=== PATIENT | male | born 1950 | race Caucasian/White ===

== ENCOUNTER 2020-01-01 00:48 | Day surgery (SDC) | payer MEDICARE, BC, SELFPAY ==
[2019-12-25 10:25] VITALS: BMI 32.2
[2020-01-01 10:32] VITALS: BP 177/82; PULSE 50; RESP 16; TEMP 36.5; O2SAT 100
[2020-01-01] MEDS: LACTATED RINGERS 1,000 ML 150 ML IV CONT (10:47)
--- NOTE | 2020-01-01 10:55 | WPDANESEPPF ---
Anes - Initial Pre Proc Eval Procedure: Operation Date: 01/01/20 11:00 Proposed Procedures p Colonoscopy - Chinedu Yanez MD Date/Time: 01/01/20 10:55 Surgeon: Chinedu Yanez MD Pre Op Diagnosis: Change in bowel habits Patient Data Age: 69 Gender: M Height: 6 ft 2 in Weight: 114 kg Last Vital Signs Temp 36.5 C 01/01/20 10:32 Pulse 50 L 01/01/20 10:32 Resp 16 01/01/20 10:32 BP 177/82 H 01/01/20 10:32 Pulse Ox 100 01/01/20 10:32 Allergies Allergy/AdvReac Type Severity Reaction Status Date / Time No Known Allergies Allergy Unknown . Verified 01/01/20 10:30 Home Medications Medication Instructions Recorded Confirmed Type adalimumab 40 mg/0.8 mL 40 mg SUB-Q .every 2 weeks each 09/30/19 12/25/19 History subcutaneous syringe kit atorvastatin 40 mg tablet 40 mg PO EVERY OTHER DAY 09/30/19 12/25/19 History aspirin 325 mg tablet 325 mg PO DAILY 10/08/19 12/25/19 History blood sugar diagnostic #10 each 10/08/19 12/25/19 History blood-glucose meter #1 each 10/08/19 12/25/19 History cholecalciferol (vitamin D3) 25 1,000 unit PO DAILY 10/08/19 12/25/19 History mcg (1,000 unit) capsule folic acid 1 mg tablet 2 mg PO DAILY tablet 10/08/19 12/25/19 History lancets 30 gauge #25 each 10/08/19 12/25/19 History multivitamin,tj-epqs-xgpirlnd 1 tablet PO DAILY 10/08/19 12/25/19 History omega-3 360 os-bwq-dpr-fish oil 1 cap PO DAILY 10/08/19 12/25/19 History 1,200 mg capsule,delayed release tamsulosin 0.4 mg capsule 0.4 mg PO DAILY 10/08/19 12/25/19 History oxycodone-acetaminophen 10 mg-325 1 tablet PO Q6H PRN #120 tablet 11/05/19 12/25/19 Rx mg tablet methotrexate sodium 2.5 mg tablet 15 mg PO WEEKLY tablet 12/24/19 12/25/19 History prednisone 10 mg PO PRN 12/25/19 12/25/19 History Patient hx anesthesia problems: none Family hx anesthesia problems: none PMFSH Past Medical History Medical History Acute bronchitis due to other specified organisms Acute CVA (cerebrovascular accident) Acute non-recurrent maxillary sinusitis AK (actinic keratosis) Ataxia Bilateral foot pain BPH without urinary obstruction Chronic depression Claudication, intermittent Fecal incontinence Hemiparesis affecting left side as late effect of cerebrovascular accident History of squamous cell carcinoma Hypogonadism male Intermittent claudication of both lower extremities due to atherosclerosis Mixed hyperlipidemia Multiple polyps of sigmoid colon Pain in left foot Prurigo nodularis Rheumatoid arthritis involving ankle with positive rheumatoid factor Rheumatoid arthritis involving multiple sites with positive rheumatoid factor Rheumatoid arthritis of unspecified site with involvement of other organs and systems Skin cancer screening Skin neoplasm Squamous cell carcinoma of neck Type 2 diabetes mellitus with hyperglycemia, without long-term current use of insulin Family History Family History Mother Family history of osteoporosis Family history of cardiac disorder, Onset Age: 89 Sibling Patient's brother is , Onset Age: 3 Family history of malignant neoplasm of kidney, Onset Age: 3 Father Malignant neoplasm of prostate, Onset Age: 92 Social History Social History Smoking status: Never smoker Smoking end date: 11/26/96 Alcohol intake: never Gender identity (if verbalized by the patient): Male Anes - Eval Final PreProcedure Day of Procedure 01/01/20 10:55 Patient weight: obese Heart: regular rate and rhythm Lungs: clear to auscultation Airway: Mallampati scale class III Neurological: alert and oriented Last oral intake: >/= 8 hours ASA classification: III Emergent: no Anesthetic plan: proceed Anesthesia type and monitoring: general GIVS and standard monitoring Informed Conse
--- NOTE | 2020-01-01 11:06 | PM.HPGS ---
History of Present Illness History of Present Illness Consent: Risks, benefits, and alternatives have been discussed and questions answered. Patient agrees to proceed with procedure. Chief complaint: Change in bowel habits Narrative: Randolph Ellison is a 69 year old W male referred for colonoscopy secondary to history of colonic polyps. Last colonoscopy was performed 2018 and least 10 polyps were removed. Patient also had occasional episode of fecal incontinence. [facility] Past Medical History Medical History Acute bronchitis due to other specified organisms Acute CVA (cerebrovascular accident) Acute non-recurrent maxillary sinusitis AK (actinic keratosis) Ataxia Bilateral foot pain BPH without urinary obstruction Chronic depression Claudication, intermittent Fecal incontinence Hemiparesis affecting left side as late effect of cerebrovascular accident History of squamous cell carcinoma Hypogonadism male Intermittent claudication of both lower extremities due to atherosclerosis Mixed hyperlipidemia Multiple polyps of sigmoid colon Pain in left foot Prurigo nodularis Rheumatoid arthritis involving ankle with positive rheumatoid factor Rheumatoid arthritis involving multiple sites with positive rheumatoid factor Rheumatoid arthritis of unspecified site with involvement of other organs and systems Skin cancer screening Skin neoplasm Squamous cell carcinoma of neck Type 2 diabetes mellitus with hyperglycemia, without long-term current use of insulin Family History Family History Mother Family history of osteoporosis Family history of cardiac disorder, Onset Age: 89 Sibling Patient's brother is , Onset Age: 3 Family history of malignant neoplasm of kidney, Onset Age: 3 Father Malignant neoplasm of prostate, Onset Age: 92 Social History Social History Smoking status: Never smoker Smoking end date: 11/26/96 Alcohol intake: never Gender identity (if verbalized by the patient): Male Meds Home Medications and Allergies Home Medications Medication Instructions Recorded Confirmed Type adalimumab 40 mg/0.8 mL 40 mg SUB-Q .every 2 weeks each 09/30/19 12/25/19 History subcutaneous syringe kit atorvastatin 40 mg tablet 40 mg PO EVERY OTHER DAY 09/30/19 12/25/19 History aspirin 325 mg tablet 325 mg PO DAILY 10/08/19 12/25/19 History blood sugar diagnostic #10 each 10/08/19 12/25/19 History blood-glucose meter #1 each 10/08/19 12/25/19 History cholecalciferol (vitamin D3) 25 1,000 unit PO DAILY 10/08/19 12/25/19 History mcg (1,000 unit) capsule folic acid 1 mg tablet 2 mg PO DAILY tablet 10/08/19 12/25/19 History lancets 30 gauge #25 each 10/08/19 12/25/19 History multivitamin,hs-rfnv-nuvrynnz 1 tablet PO DAILY 10/08/19 12/25/19 History omega-3 360 pn-wlo-wzj-fish oil 1 cap PO DAILY 10/08/19 12/25/19 History 1,200 mg capsule,delayed release tamsulosin 0.4 mg capsule 0.4 mg PO DAILY 10/08/19 12/25/19 History oxycodone-acetaminophen 10 mg-325 1 tablet PO Q6H PRN #120 tablet 11/05/19 12/25/19 Rx mg tablet methotrexate sodium 2.5 mg tablet 15 mg PO WEEKLY tablet 12/24/19 12/25/19 History prednisone 10 mg PO PRN 12/25/19 12/25/19 History Allergies Allergy/AdvReac Type Severity Reaction Status Date / Time No Known Allergies Allergy Unknown . Verified 01/01/20 10:30 Vital Signs Vital Signs - 24 hr 01/01/20 10:32 Temperature 36.5 C Pulse Rate 50 L Respiratory Rate 16 Blood Pressure 177/82 H Pulse Oximetry 100 Exam Const: Orientation/consciousness: patient oriented x3 Resp: Auscultation: clear to auscultation bilaterally Cardio: Rate: regular rate Rhythm: regular rhythm Heart sounds: no murmurs GI: GI Palp: Yes Soft to palpation, No Tenderness to palpation present (GI), Yes No hepatospl
[2020-01-01 11:57] VITALS: BP 127/71; PULSE 55; RESP 12; O2SAT 97
[2020-01-01 12:07] VITALS: BP 120/72; PULSE 55; RESP 12; O2SAT 97
[2020-01-01 12:17] VITALS: BP 158/98; PULSE 58; RESP 12; O2SAT 100
== END 2020-01-01 12:35 | disposition home or self-care (01) ==
PROVIDERS: PCP Family Medicine; Visit Provider Internal Medicine Gastroenterology
PROC: 0DJD8ZZ Inspection of Lower Intestinal Tract, Via Natural or Artificial Opening Endoscopic (ICD-10-PCS; CPT 45378; principal; 2020-01-01 11:00)
DX: R19.4 Change in bowel habit (principal); K63.5 Polyp of colon; K57.30 Diverticulosis of large intestine without perforation or abscess without bleeding; R15.9 Full incontinence of feces; E11.9 Type 2 diabetes mellitus without complications; E78.2 Mixed hyperlipidemia; N40.0 Benign prostatic hyperplasia without lower urinary tract symptoms; F32.9 Major depressive disorder, single episode, unspecified; I69.354 Hemiplegia and hemiparesis following cerebral infarction affecting left non-dominant side; I70.213 Atherosclerosis of native arteries of extremities with intermittent claudication, bilateral legs; M10.9 Gout, unspecified; Z79.82 Long term (current) use of aspirin; E66.9 Obesity, unspecified; Z68.32 Body mass index [BMI] 32.0-32.9, adult
CPT/HCPCS: 45385; 88305; J2704; J7120

== ENCOUNTER 2021-02-23 08:11 | Outpatient (CLI) | payer MEDICARE, BC, SELFPAY ==
--- NOTE | ~2021-02-23 | XR_ITS ---
MODIFIED ESOPHAGRAM HISTORY: Dysphagia. TECHNIQUE: Modified barium esophagram was performed on 02/23/2021. I administered fluoroscopy and perf ormed the exam with speech pathologist. Patient was seated for lateral fluoroscopic imaging for elkin stion of thin liquids, pudding, solids and quantified amounts, followed by thin liquids in uncontroll ed amounts. This was recorded on tape. A single fluoroscopic spot image was also recorded. The DAP fo r this procedure was 1.5 Gycm2. The amount of fluoroscopy time used during this procedure was 2.2 min utes. FINDINGS: Oral stage: Adequate function. Pharyngeal stage: Adequate function. Transient laryngeal penetration without aspiration was noted dur ing uncontrolled swallow of thin liquids via cup and straw. Cervical/esophageal stage: Adequate function. Mildly prominent anterior endplate osteophytes in the l ower cervical spine. IMPRESSION: Patient tolerated regular consistency oral feedings in the upright position. Please karyn elate with speech pathologist findings and specific feeding recommendations. Reviewed, dictated and finalized at location A. IMPRESSION: Patient tolerated regular consistency oral feedings in the upright position. Please correlate with speech pathologist findings and specific feedi ng recommendations.
--- NOTE | 2021-02-23 13:02 | STOPEVAL ---
MODIFIED BARIUM SWALLOW EVALUATION: Thank you for referring Randolph Ellison to [facility].? Attending Provider: Pedro Pool MD FAX #: [phone] Outpatient Past Medical History Past Medical History Source of Past Medical History Patient Neurological History Hx Cerebrovascular Accident (CVA) Yes: 2012 Hx Other Neurological Disorders Yes: Neuropathy Cardiovascular History Hx Hypertension Yes: Resolved With 100 lb weight loss Respiratory History Hx Sleep Apnea Yes: CPAP Gastrointestinal History Hx Gastrointestinal Disorders No Significant History Genitourinary History Hx Prostatectomy Yes Musculoskeletal History Hx Joint Replacement Yes: Bilateral Knee Replacement 2011 Hx Rheumatoid Arthritis Yes Hematological History Hx Hematological Disorders No Significant History Endocrine History Hx Diabetes Yes: Resolved since weight loss HEENT History Hx HEENT Disorders No Significant History Integumentary History Hx Skin Disorders No Significant History Reproductive History Hx Reproductive Disorders No Significant History Psychosocial History Hx Depression Yes Pain History Has Past Pain Affected Your Daily Life Yes History of Long-Term Prescription Pain Yes: Percocet Medication Use (Opiates) Anesthesia History Hx Anesthesia Reactions No Significant History Other History Hx Implanted Device Yes: Bilateral Knee Replacments Prior Level of Function Prior Swallow Level Prior Intake Method Oral Prior Diet Regular (Level 7 Diet) Prior Liquid Consistency Thin (Level 0 Diet) Pain Assessment Timing of Pain Assessment Timing of Pain Assessment Assessment Self Report Self Report Pain Level 0 Pain Score Pain Score 0: Self Report Modified Barium Swallow Evaluation Recent Swallowing History Reports Dysphagia Yes: food doesn't go down, especially meat Onset of Dysphagia month or so ago History of Dysphagia No History of Related Medical Diagnosis CVA Other Factors Impacting Dysphagia None History of Pneumonia No Reported Difficult Consistencies Solids Intake Method Prior to Swallow Oral Evaluation Diet Prior to Swallow Evaluation Regular, Level 7 Liquid Consistency Prior to Swallow Thin (0) Evaluation Consistency Solid Consistency Method of Presentation Straw Oral Preparatory Symptoms Within Functional Limits Oral Phase Symptoms Within Functional Limits Pharyngeal Phase Symptoms Bony Protuberance Severity of Vallecular Residue None - 0% No Residue Severity of Pyriform Sinus Residue None - 0% No Residue 8 Point L
== END 2021-02-23 08:12 | disposition home or self-care (01) ==
PROVIDERS: PCP Family Medicine; Visit Provider Family Medicine
DX: R13.10 Dysphagia, unspecified (principal)
CPT/HCPCS: 92611

== ENCOUNTER 2021-03-29 17:48 | Observation (INO) | payer MEDICARE, BC, SELFPAY ==
--- NOTE | ~2021-03-29 | CT_ITS ---
EXAMINATION: CTA chest PE abdomen pel DATE: 03/29/2021 19:30 INDICATION: Chest pain. Low abdominal pain. TECHNIQUE: Computed tomography angiography (CTA) of the chest was performed with 100 mL Omnipaque-350 intravenous contrast timed to evaluate the pulmonary arteries. Coronal maximum intensity projection 3D-reconstructions were created by the technologist. Computed tomography (CT) of the abdomen and pelv is was performed with intravenous contrast. Automated exposure control and iterative reconstruction t echnique were employed. The dose-length product was 2215.60 mGy-cm. COMPARISON: Chest CT 08/23/2018 FINDINGS: CTA chest: There is mild scarring at the lung apices. There are scattered groundglass opacities and s mall airspace opacities in all lobes. Calcified right lung nodules and calcified right hilar lymph no shayy are consistent with old granulomatous disease. There is a 10 mm cavitary nodule in left lower lob e. There is diffuse septal thickening in the lungs. No pleural effusion. There is mild mediastinal an d bilateral hilar lymphadenopathy, likely reactive. There is no pulmonary embolus. There is an old he aled left rib fracture. CT abdomen and pelvis: There are multiple low-attenuation masses in the liver measuring up to 11.3 x 8.7 cm in right hepatic lobe. There are cysts in the liver measuring up to 2.6 cm. The gallbladder is normal in size. Gallbladder wall thickening is noted. The spleen and pancreas are normal. There is c ortical thinning of the kidneys. The prostate is mildly enlarged. There is diverticulosis of the colo n without evidence of diverticulitis. The appendix is normal. There are no dilated loops of bowel. Th ere is wall thickening of the cardia of the stomach. There is gastrohepatic, periportal, aortocaval, left periaortic lymphadenopathy. 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 T here is no free intraperitoneal fluid. There is moderate lumbar spondylosis. IMPRESSION: 1. Wall thickening of the cardia of the stomach suspicious for primary adenocarcinoma. 2. Abdominal lymphadenopathy, liver masses, and cavitary lung nodule, consistent with metastatic dise ase. 3. Diffuse lung disease, likely pneumonia and/or metastatic disease with lymphangitic spread superimp osed on chronic interstitial lung disease. 4. Gallbladder wall thickening, which may be seen with interstitial edema, chronic liver disease, or chronic cholecystitis. 5. No pulmonary embolus. Reviewed, dictated and finalized at location A. IMPRESSION: 1. Wall thickening of the cardia of the stomach suspicious for primary adenocar cinoma. 2. Abdominal lymphadenopathy, liver masses, and cavitary lung nodule, consisten t with metastatic disease. 3. Diffuse lung disease, likely pneumonia and/or metastatic disease with lympha ngitic spread superimposed on chronic interstitial lung disease. 4. 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 5. No pulmonary embolus.
--- NOTE | ~2021-03-29 | XR_ITS ---
EXAMINATION: XR chest 1V portable DATE: 03/29/2021 18:24 INDICATION: Cough and shortness of breath. TECHNIQUE: A single frontal view of the chest was obtained on 2 radiographs. COMPARISON: Chest 2 views 07/07/2019, chest CT 08/23/2018 FINDINGS: The chest demonstrates clear lungs without pneumonia, pleural effusion, or pneumothorax. Th e heart size is normal. There is an old healed left rib fracture. IMPRESSION: 1. No acute cardiopulmonary disease. Reviewed, dictated and finalized at location A.
[2021-03-29 17:55] VITALS: BP 132/93; PULSE 108; RESP 20; TEMP 36.8; O2SAT 98
--- NOTE | 2021-03-29 18:09 | ECG_ITS ---
Measurements Intervals [place] Rate: 93 P: [place]: 0 QRS: -49 QRSD: 117 T: 81 QT: 362 QTc: 450 Interpretive Statements SINUS RHYTHM WITH FIRST DEGREE AV BLOCK ATRIAL PREMATURE COMPLEXES LEFT ANTERIOR FASCICULAR BLOCK LEFT VENTRICULAR HYPERTROPHY WITH ST-T CHANGE CONSIDER INFERIOR INFARCT, AGE INDETERMINATE ABNORMAL ECG Electronically Signed On 03-29-2021 18:46:47 CDT by Abbe Lyle D.O.
--- NOTE | 2021-03-29 18:17 | ED.WEAKNESS ---
HPI - Weakness General Chief complaint: Weakness Stated complaint: sob, cough Time Seen by Provider: 03/29/21 17:53 Source: patient and RN notes reviewed Mode of arrival: ambulatory Limitations: no limitations History of Present Illness HPI Narrative: This is a 71 year old male with history of DM, RA, ROBERTA with CPAP who presents from home for evaluation of generalized weakness, right chest pain, and cough. He states he has not felt well for 3 weeks. He has been having pain to right upper chest and shoulder for 3 weeks. This pain is worse with inspiration. He also reports nonproductive cough for 3 weeks. He also has intermittent epigastric abdominal pain with intermittent nausea and vomiting. He is unsure if he has had a fever. He thinks his symptoms are due to using a dirty CPAP machine. He has not been on antibiotics or been evaluation for his symptoms. HE denies sick contacts. He is vaccinated for COVID. He also has sob. MD Complaint: generalized weakness Related Data Home Medications Medication Instructions Recorded Confirmed adalimumab 40 mg/0.8 mL 40 mg SUB-Q .every 2 weeks each 09/30/19 02/16/21 subcutaneous syringe kit atorvastatin 40 mg tablet 40 mg PO EVERY OTHER DAY 09/30/19 02/16/21 aspirin 325 mg tablet 325 mg PO DAILY 10/08/19 02/16/21 blood sugar diagnostic #10 each 10/08/19 02/16/21 blood-glucose meter #1 each 10/08/19 02/16/21 cholecalciferol (vitamin D3) 25 1,000 unit PO DAILY 10/08/19 02/16/21 mcg (1,000 unit) capsule folic acid 1 mg tablet 2 mg PO DAILY tablet 10/08/19 02/16/21 lancets 30 gauge #25 each 10/08/19 02/16/21 multivitamin,tb-cric-mtxkwwcw 1 tablet PO DAILY 10/08/19 02/16/21 omega-3 360 po-fly-qdw-fish oil 1 cap PO DAILY 10/08/19 02/16/21 1,200 mg capsule,delayed release methotrexate sodium 2.5 mg tablet 15 mg PO WEEKLY tablet 12/24/19 02/16/21 Allergies Allergy/AdvReac Type Severity Reaction Status Date / Time No Known Allergies Allergy Unknown . Verified 03/29/21 18:02 Review of Systems Review of Systems: All systems reviewed & are unremarkable except as noted in HPI and below Constitutional: Constitutional: Denies chills, Denies fever(s) and Reports weakness ENT: Denies sore throat Cardiovascular: Cardiovascular: Reports chest pain and Denies radiating jaw, neck or arm pain Respiratory: Respiratory: Reports cough and Reports dyspnea Gastrointestinal: Gastrointestinal: Reports abdominal pain, Reports nausea and Reports vomiting Genitourinary: Genitourinary: Denies hematuria Endocrine: Endocrine: Reports fatigue [facility] Past Medical History Medical History (Updated 03/29/21 @ 20:37 by Ana Zavala MD) Acute bronchitis due to other specified organisms Acute CVA (cerebrovascular accident) Acute non-recurrent maxillary sinusitis Acute parotitis AK (actinic keratosis) Ataxia Bilateral foot pain BMI 33.0-33.9,adult BPH without urinary obstruction Chronic depression Claudication, intermittent Conjunctivitis Difficulty swallowing Fecal incontinence Hemiparesis affecting left side as late effect of cerebrovascular accident History of squamous cell carcinoma Hypogonadism male Intermittent claudication of both lower extremities due to atherosclerosis Mixed hyperlipidemia Multiple polyps of sigmoid colon Pain in left foot Prurigo nodularis Rheumatoid arthritis involving ankle with positive rheumatoid factor Rheumatoid arthritis involving multiple sites with positive rheumatoid factor Rheumatoid arthritis of unspecified site with involvement of other organs and systems Skin cancer screening Skin neoplasm Squamous cell carcinoma of neck Type 2 diabetes mellitus with hyperglycemia, without long-term current use of insulin Family History Family History Mother Family history of osteoporosis Family history of cardiac disorder, Onset Age: 89 Sibling Patient's brother is , On
[2021-03-29 18:33] LABS: Basophils Percent Auto 0.4 % (0.2-1.2); Eosinophils Absolute Auto 0.2 K/mm3 (0-0.3); Eosinophils Percent Auto 2.3 % (0-4.4); Hematocrit 42.5 % (42.0-52.0); Hemoglobin 14.7 g/dL (14.0-18.0); Immature Granulocyte Absolute 0.15 K/mm3 (0.00-0.031); Immature Granulocyte Percent A 1.7 % (0-0.5); Immature Platelet Fraction Pct 6.6 % (0.9-11.2); Lymphocytes Absolute Auto 1.21 K/mm3 (0.9-3.2); Lymphocytes Percent Auto 13.5 % (18.3-44.2); Mean Corpuscular HGB Conc 34.6 g/dl (32-36); Mean Corpuscular Hemoglobin 33.3 pg (26-34); Mean Corpuscular Volume 96.4 fl (80-100); Mean Platelet Volume 10.7 fl (7.4-10.4); Monocytes Absolute Auto 1.2 K/mm3 (0.1-0.6); Monocytes Percent Auto 12.9 % (2.6-8.5); Neutrophils Absolute Auto 6.2 K/mm3 (1.3-6.7); Neutrophils Percent Auto 69.2 % (45.5-73.1); Platelet Count Result 126 k/mm3 (150-375); Red Blood Count 4.41 M/mm3 (4.6-6.20); Red Cell Distribution Width 13.3 % (11.5-14.5)
[2021-03-29 18:41] LABS: Lactic Acid Reflex 1.2 mmol/L (0.7-2.1)
[2021-03-29 18:47] LABS: INR 1.2; Partial Thromboplastin Time 30.3 SECONDS (22.3-36.8); Prothrombin Time 15.8 Seconds (11.1-14.7)
[2021-03-29 18:52] LABS: Alanine Aminotransferase 33 U/L (4-50); Albumin Level 4.2 g/dL (3.5-5.1); Alkaline Phosphatase 75 U/L (38-126); Anion Gap 7 mmol/L (8-16); Aspartate Amino Transferase 49 U/L (17-59); Bilirubin,Total 0.9 mg/dL (0.2-1.3); Blood Urea Nitrogen 19 mg/dL (9-20); CRP 2.1 mg/dL (<1.0); Calcium 11.1 mg/dL (8.4-10.2); Carbon Dioxide 26 mmol/L (22-30); Chloride 102 mmol/L (98-107); Estimated Glomerular Filt Rate > 60; Glucose 151 mg/dL (75-110); Lipase 612 U/L (23-300); Magnesium 2.1 mg/dL (1.6-2.3); Potassium 3.9 mmol/L (3.4-5.0); Sodium 135 mmol/L (137-145)
[2021-03-29] MEDS: SODIUM CHLORIDE 0.9% IV 1,000 ML 999 ML IV CONT ×2 (19:00→20:18)
[2021-03-29 19:01] LABS: NT Pro B Type Natriuretic Pept 63 pg/mL (5-100); Troponin I < 0.012 ng/mL (0.000-0.034)
[2021-03-29 19:12] LABS: D Dimer > 20.00 ug/mL (<0.48)
[2021-03-29 19:38] VITALS: BP 142/98; PULSE 92; RESP 20; O2SAT 97
[2021-03-29 20:31] LABS: Add Urine Microscopic? YES; Appearance Urine Clear (Clear); Bilirubin Urine Negative (Negative); Blood Urine Negative (Negative); Color Urine Yellow (Yellow); Glucose Urine UA Negative (Negative); Ketones Urine Negative (Negative); Leukocyte Esterase Ur Negative LEU/UL (Negative); Mucus Urine Rare /lpf; Nitrate Urine Negative (Negative); Protein Urine 1+ mg/dL (Negative); RBC Urine 0-2 /hpf (0-2); Urobilinogen Urine Negative mg/dL (<2.0); WBC Urine 0-3 /hpf
[2021-03-29 20:34] LABS: Specific Grav Ur 1.041 (1.001-1.035)
[2021-03-29 21:26] VITALS: BP 149/103; PULSE 78; PULSE 91; RESP 20; TEMP 36; O2SAT 98; BMI 32.3
--- NOTE | 2021-03-29 21:39 | ADMGEN ---
This patient, Randolph Ellison, was admitted to Medical Room 249-01. Patient/family oriented to hospital policies and general routines including ID bracelet, bed and alarms, visiting hours, pain management, procedures, bathroom and other care routines, personal items, smoking policy, room service/diet, and visiting hours. Information on how to activate the Rapid Response Team has been discussed. Patient/Family are encouraged to report perceived risks to care and to ask questions if they do not understand what they are told or what they should do.
--- NOTE | 2021-03-29 21:43 | PM.IMHP ---
H&P: HPI History of Present Illness Date/Time: 03/29/21 21:43 This is a 71 year old male with history of DM, RA, ROBERTA with CPAP who presents from home for evaluation of generalized weakness, intermittent chest pain, cough and shortness of breath which has been ongoing since past 3 weeks. he also reprots some difficulty swallow couple of weeks ago for which he had a swallow test done which was negative. he rpeorts he particulalry gets swlallowing difficulty with eating hamburgers. The chest pain is related to his breathing and has some cough which is mostly brought in by taking deep breaths. he denies having any fever, chills or night sweats. He reports no weight loss. Chief Complaint: weakness, chest pain, cough, sob Review of Systems Constitutional: Constitutional: Denies chills, Reports fatigue, Denies night sweats and Reports weakness Eyes: Eyes: Denies blurry vision and Denies photophobia ENT: Denies epistaxis and Denies nasal congestion Cardiovascular: Cardiovascular: Reports chest pain, Denies diaphoresis, Denies leg edema and Denies lightheadedness Respiratory: Respiratory: Denies chest congestion, Reports cough, Denies hemoptysis and Reports dyspnea on exertion Gastrointestinal: Gastrointestinal: Denies abdominal pain, Denies melena, Denies bloating, Reports constipation, Denies nausea and Denies vomiting Genitourinary: Genitourinary: Denies urinary frequency, Reports urinary incontinence and Reports urinary urgency Musculoskeletal: Musculoskeletal: Reports back pain, Denies arthralgias, Denies joint swelling and Denies neck pain Integumentary/Breasts: Skin/Breast: Denies dry skin and Denies pruritus Neurologic: Denies Abnormal speech present, Denies abnormal gait and Denies confusion Psychiatric: Psychiatric: Denies anxiety and Denies confusion [facility] Past Medical History Medical History (Updated 03/29/21 @ 20:37 by Ana Zavala MD) Acute bronchitis due to other specified organisms Acute CVA (cerebrovascular accident) Acute non-recurrent maxillary sinusitis Acute parotitis AK (actinic keratosis) Ataxia Bilateral foot pain BMI 33.0-33.9,adult BPH without urinary obstruction Chronic depression Claudication, intermittent Conjunctivitis Difficulty swallowing Fecal incontinence Hemiparesis affecting left side as late effect of cerebrovascular accident History of squamous cell carcinoma Hypogonadism male Intermittent claudication of both lower extremities due to atherosclerosis Mixed hyperlipidemia Multiple polyps of sigmoid colon Pain in left foot Prurigo nodularis Rheumatoid arthritis involving ankle with positive rheumatoid factor Rheumatoid arthritis involving multiple sites with positive rheumatoid factor Rheumatoid arthritis of unspecified site with involvement of other organs and systems Skin cancer screening Skin neoplasm Squamous cell carcinoma of neck Type 2 diabetes mellitus with hyperglycemia, without long-term current use of insulin Family History Family History Mother Family history of osteoporosis Family history of cardiac disorder, Onset Age: 89 Sibling Patient's brother is , Onset Age: 3 Family history of malignant neoplasm of kidney, Onset Age: 3 Father Malignant neoplasm of prostate, Onset Age: 92 Social History Social History Smoking status: Never smoker Smoking end date: 11/26/96 Alcohol intake: never Substance use: never Gender identity (if verbalized by the patient): Male Spiritual care concerns: No Meds Home Medications and Allergies Home Medications Medication Instructions Recorded Confirmed Type adalimumab 40 mg/0.8 mL 40 mg SUB-Q .every 2 weeks each 09/30/19 02/16/21 History subcutaneous syringe kit atorvastatin 40 mg tablet 40 mg PO EVERY OTHER DAY 09/30/19 02/16/21 History cholecalci
[2021-03-29] MEDS: SODIUM CHLORIDE 0.9% IV 1,000 ML 60 ML IV CONT (22:15)
[2021-03-29 23:01] VITALS: PULSE 63; RESP 14; O2SAT 95
[2021-03-29] MEDS: LORazepam (*CRX) 0.5 MG TABLET PO (23:01)
[2021-03-29] MEDS: FAMOTIDINE 20 MG/2 ML VIAL IV PUSH (23:01)
[2021-03-30] VITALS (11 sets, daily range): BP systolic 139–166; BP diastolic 76–94; PULSE 63–87; RESP 16–20; TEMP 36.2–37; O2SAT 93–98
[2021-03-30] MEDS: MORPHINE SULFATE (*CRX) 2 MG/ML INJ IV PUSH (01:51)
[2021-03-30 05:19] LABS: Basophils Absolute Auto 0.1 K/mm3 (0.0-0.1); Basophils Percent Auto 0.6 % (0.2-1.2); Eosinophils Absolute Auto 0.2 K/mm3 (0-0.3); Eosinophils Percent Auto 2.5 % (0-4.4); Hematocrit 36.5 % (42.0-52.0); Hemoglobin 12.8 g/dL (14.0-18.0); Immature Granulocyte Absolute 0.16 K/mm3 (0.00-0.031); Immature Granulocyte Percent A 1.7 % (0-0.5); Lymphocytes Absolute Auto 1.32 K/mm3 (0.9-3.2); Lymphocytes Percent Auto 14.1 % (18.3-44.2); Mean Corpuscular HGB Conc 35.1 g/dl (32-36); Mean Corpuscular Hemoglobin 33.1 pg (26-34); Mean Corpuscular Volume 94.3 fl (80-100); Mean Platelet Volume 10.8 fl (7.4-10.4); Monocytes Absolute Auto 1.2 K/mm3 (0.1-0.6); Monocytes Percent Auto 12.6 % (2.6-8.5); Neutrophils Absolute Auto 6.4 K/mm3 (1.3-6.7); Neutrophils Percent Auto 68.5 % (45.5-73.1); Platelet Count Result 101 k/mm3 (150-375); Red Blood Count 3.87 M/mm3 (4.6-6.20); Red Cell Distribution Width 13.2 % (11.5-14.5); White Blood Count 9.4 K/mm3 (4.5-10.0)
[2021-03-30 05:37] LABS: Alanine Aminotransferase 28 U/L (4-50); Albumin Level 3.5 g/dL (3.5-5.1); Alkaline Phosphatase 60 U/L (38-126); Anion Gap 2 mmol/L (8-16); Aspartate Amino Transferase 48 U/L (17-59); Blood Urea Nitrogen 17 mg/dL (9-20); Calcium 10.1 mg/dL (8.4-10.2); Carbon Dioxide 27 mmol/L (22-30); Chloride 105 mmol/L (98-107); Estimated CRCL calculation 102 ml/min; Estimated Glomerular Filt Rate > 60; Glucose 130 mg/dL (75-110); Lipase 141 U/L (23-300); Potassium 4.1 mmol/L (3.4-5.0); Sodium 134 mmol/L (137-145)
[2021-03-30 07:45] LABS: Glucose Point of Care 141 (65-105)
--- NOTE | 2021-03-30 07:48 | PM.IMPN ---
Progress Note: A&P Assessment and Plan (1) Gastric mass: Code(s): K31.89 - Other diseases of stomach and duodenum Status: Acute Assessment and Plan: will proceed with egd, most likely malignancy with evidence of mets prognosis is guarded after egd findings, will consult oncology for further management Oncologist: patient need palliative chemotherapy. He will also need PET scan as an outpatient. Oncologist will see him in the office and will order the PET scan and further discussion about chemotherapy treatment will be done after the final pathology report is available. Patient will also need MediPort placement that can be done as an outpatient. (2) Metastatic disease: Code(s): C79.9 - Secondary malignant neoplasm of unspecified site Status: Acute Assessment and Plan: on immunosuppressive therapy for at least 25 years duration currently on Humira and methotrexate. presented with back pain between the shoulder blade started about 4 weeks ago along with shortness of breath and difficulty swallowing for couple of weeks duration; having dysphagia for liquids and as well as solid food. lost almost 20 lb weight in last 3 months duration. CTA chest showed no evidence of pulmonary embolism but there was thickening of the cardia of the stomach suspicious for primary adenocarcinoma along with abdominal lymphadenopathy liver masses and lung nodule consistent with metastatic disease. CTA showed lymph node, liver and lung involvement (lesions/mets). EGD completed today. showed malignant appearance stenosis at the GE junction. Biopsies were taken and pathology is pending. Appreciate Oncologist Consultation and GI consultation. (3) Hypercalcemia: Code(s): E83.52 - Hypercalcemia Status: Acute Assessment and Plan: Hypercalcemia with a level of 11 Yesterday today Calcium level is 10.1 and normal. 2019 level was normal as well as January of 2020 level was normal. Possibly was due to dehydration may follow-up with PCP and review future labs (4) BMI 33.0-33.9,adult: Code(s): Z68.33 - Body mass index [BMI] 33.0-33.9, adult Status: Acute Assessment and Plan: morbid obesity recent weight loss 20 lbs. with difficulty swallowing and new diagnosis of metastasis patient will likely continue to lose weight (5) Difficulty swallowing: Qualifiers: Dysphagia type: unspecified Qualified Code(s): R13.10 - Dysphagia, unspecified Code(s): R13.10 - Dysphagia, unspecified Status: Acute Assessment and Plan: probably from mass in cardia, advised patient to take a sip of liquid or water prior to a bite of food and follow the bite of food with a sip of liquid or water. He is to chew and macerated his food into very small pieces before swallowing EGD found 3 masses in the stomach and biopsies awaiting biopsy results and oncologist recommendations and GI recommendations (6) Type 2 diabetes mellitus with hyperglycemia, without long-term current use of insulin: Code(s): E11.65 - Type 2 diabetes mellitus with hyperglycemia Status: Acute Assessment and Plan: glucose level were currently controlled today 151 and 130 that may have been due to his NPO status for his EGD prep will need to further monitor his glucose levels after restarting his meals today (7) Mixed hyperlipidemia: Code(s): E78.2 - Mixed hyperlipidemia Status: Acute Assessment and Plan: continue his home medications no concerns at this time no chest pain or shortness of breath vital signs are stable (8) Chronic depression: Code(s): F32.9 - Major depressive disorder, single episode, unspecified Status: Acute Assessment and Plan: appeared euthymic and controlled at this time patient is able to ask questions and participate in conversations, planning ahead, dealing with the current likely cancer diagnosis has family ferro
[2021-03-30] MEDS: FAMOTIDINE 20 MG/2 ML VIAL IV PUSH (08:44)
--- NOTE | 2021-03-30 09:55 | PC.NURSE ---
To GI Lab per KAMLESH steve intact. Report given to VERITO Almendarez.
--- NOTE | 2021-03-30 10:01 | WPDANESEPPF ---
Anes - Initial Pre Proc Eval Procedure: Operation Date: 03/30/21 14:45 Proposed Procedures p Esophagogastroduodenoscopy - Cipriano Hodge MD Date/Time: 03/30/21 10:01 Surgeon: Liliana Valentine NP Pre Op Diagnosis: stomach mass, hypercalcemia, metastatic disease Patient Data Age: 71 Gender: M Height: 6 ft 2 in Weight: 114.2 kg Last Vital Signs Temp 36.2 C L 03/30/21 05:10 Pulse 80 03/30/21 05:10 Resp 20 03/30/21 05:10 BP 139/94 H 03/30/21 05:10 Pulse Ox 93 03/30/21 08:57 Allergies Allergy/AdvReac Type Severity Reaction Status Date / Time No Known Allergies Allergy Unknown . Verified 03/30/21 10:01 Home Medications Medication Instructions Recorded Confirmed Type adalimumab 40 mg/0.8 mL 40 mg SUB-Q WEEKLY each 09/30/19 03/29/21 History subcutaneous syringe kit atorvastatin 40 mg tablet 40 mg PO EVERY OTHER DAY 09/30/19 03/29/21 History cholecalciferol (vitamin D3) 25 1,000 unit PO DAILY 10/08/19 03/29/21 History mcg (1,000 unit) capsule folic acid 1 mg tablet 2 mg PO DAILY tablet 10/08/19 03/29/21 History multivitamin,dq-xsmv-lgoxdynv 1 tablet PO DAILY 10/08/19 03/29/21 History omega-3 360 zg-lyg-rwo-fish oil 1 cap PO DAILY 10/08/19 03/29/21 History 1,200 mg capsule,delayed release oxycodone-acetaminophen 10 mg-325 1 tablet PO Q6H PRN #120 tablet 11/05/19 03/29/21 Rx mg tablet methotrexate sodium 2.5 mg tablet 15 mg PO WEEKLY tablet 12/24/19 03/29/21 History duloxetine 60 mg capsule,delayed 60 mg PO DAILY #90 cap 12/13/20 03/29/21 Rx release tamsulosin 0.4 mg capsule 0.4 mg PO . b.i.d. #180 cap 02/16/21 03/29/21 Rx Laboratory Tests 03/29/21 03/29/21 03/29/21 18:26 18:26 18:26 WBC 9.0 K/mm3 K/mm3 (4.5-10.0) RBC 4.41 M/mm3 L M/mm3 (4.6-6.20) Hgb 14.7 g/dL g/dL (14.0-18.0) Hct 42.5 % % (42.0-52.0) MCV 96.4 fl fl (80-100) MCH 33.3 pg pg (26-34) MCHC 34.6 g/dl g/dl (32-36) RDW 13.3 % % (11.5-14.5) Plt Count 126 k/mm3 L k/mm3 (150-375) MPV 10.7 fl H fl (7.4-10.4) Immature Gran % (Auto) 1.7 % H % (0-0.5) Neut % (Auto) 69.2 % % (45.5-73.1) Lymph % (Auto) 13.5 % L % (18.3-44.2) King % (Auto) 12.9 % H % (2.6-8.5) Eos % (Auto) 2.3 % % (0-4.4) Baso % (Auto) 0.4 % % (0.2-1.2) Lymph # (Auto) 1.21 K/mm3 K/mm3 (0.9-3.2) King # (Auto) 1.2 K/mm3 H K/mm3 (0.1-0.6) Eos # (Auto) 0.2 K/mm3 K/mm3 (0-0.3) Baso # (Auto) 0.0 K/mm3 K/mm3 (0.0-0.1) Abs Immat Gran (auto) 0.15 K/mm3 H K/mm3 (0.00-0.031) Absolute Neuts (auto) 6.2 K/mm3 K/mm3 (1.3-6.7) Absolute Nucleated RBC 0.0 K/mm3 K/mm3 (0.0-0.012) Nucleated RBC % 0.0 % % (0.0-0.2) % Immature Plt Fraction 6.6 % % (0.9-11.2) PT 15.8 Seconds H Seconds (11.1-14.7) INR 1.2 APTT 30.3 SECONDS SECONDS (22.3-36.8) D-Dimer > 20.00 ug/mL H ug/mL (<0.48) Sodium 135 mmol/L L mmol/L (137-145) Potassium 3.9 mmol/L mmol/L (3.4-5.0) Chloride 102 mmol/L mmol/L (98-107) Carbon Dioxide 26 mmol/L mmol/L (22-30) Anion Gap 7 mmol/L L mmol/L (8-16) BUN 19 mg/dL mg/dL (9-20) Creatinine 1.00 mg/dL mg/dL (0.7-1.3) Estim Creat Clear Calc Not Reportable Estimated GFR > 60 (59 - ) Glucose 151 mg/dL H mg/dL (75-110) POC Capillary Glucose Lactic Acid Calcium 11.1 mg/dL H mg/dL (8.4-10.2) Magnesium 2.1 mg/dL mg/dL (1.6-2.3) Total Bilirubin 0.9 mg/dL mg/dL (0.2-1.3) AST 49 U/L U/L (17-59) ALT 33 U/L U/L (4-50) Alkaline Phosphatase 75 U/L U/L (38-126) Troponin I < 0.012 ng/mL ng/mL (0.000-0.034) C-R
[2021-03-30 10:02] LABS: Glucose Point of Care 126 (65-105)
--- NOTE | 2021-03-30 10:02 | PC.NURSE ---
On 03/30/21, the student, [Rachael Knight ], provided care and completed [facility] documentation on this patient. I have reviewed the student's documentation and agree with the findings.
[2021-03-30] MEDS: LACTATED RINGERS 1,000 ML 150 ML IV CONT (10:08)
--- NOTE | 2021-03-30 10:29 | WPDGICN ---
Assessment and Plan Assessment and plan (1) Gastric mass: Code(s): K31.89 - Other diseases of stomach and duodenum Status: Acute Assessment and Plan: will proceed with egd, most likely malignancy with evidence of mets prognosis is guarded after egd findings, will consult oncology for further management (2) Metastatic disease: Code(s): C79.9 - Secondary malignant neoplasm of unspecified site Status: Acute Assessment and Plan: CT scan reviewed, EGD now (3) Difficulty swallowing: Qualifiers: Dysphagia type: unspecified Qualified Code(s): R13.10 - Dysphagia, unspecified Code(s): R13.10 - Dysphagia, unspecified Status: Acute Assessment and Plan: probably from mass in cardia, EGD to assess site (4) Type 2 diabetes mellitus with hyperglycemia, without long-term current use of insulin: Code(s): E11.65 - Type 2 diabetes mellitus with hyperglycemia Status: Acute (5) ROBERTA treated with BiPAP: Code(s): G47.33 - Obstructive sleep apnea (adult) (pediatric) Status: Acute (6) Rheumatoid arthritis involving multiple sites with positive rheumatoid factor: Code(s): M05.79 - Rheumatoid arthritis with rheumatoid factor of multiple sites without organ or systems involvement Status: Acute Assessment and Plan: receiving biologics, hold treatment in setting of possible malignancy GI Consult Note Consult date/time: 03/30/21 10:29 Reason for consult: stomach mass (per CT scan), weight loss and dysphagia HPI: Randolph Ellison is a 71 year old male with previous history of CVA years ago, RA on humira and MTX, DM, ROBERTA with new onset of dysphagia to solids about 5-6 weeks ago for which he had esophagram without major findings, also progressive upper abdominal discomfort, weight loss ~ 10 lb. He came here after having shortness of breath with generalized weakness with intermittent chest pain and cough. ER evaluation with CT scan that showed wall thickening of the cardia of the stomach suspicious for primary adenocarcinoma, abdominal lymphadenopathy, liver masses, and cavitary lung nodule, consistent with metastatic disease, diffuse lung disease, likely pneumonia and/or metastatic disease with lymphangitic spread superimposed on chronic interstitial lung disease. No PE. He never had EGD, had colonoscopy about 2 years ago. Review of Systems Constitutional: Constitutional: Reports weakness Eyes: Eyes: Denies blurry vision ENT: Reports Normal hearing present Cardiovascular: Cardiovascular: Reports chest pain Respiratory: Respiratory: Reports cough and Reports dyspnea Gastrointestinal: Gastrointestinal: Reports abdominal pain and Reports dysphagia Genitourinary: Genitourinary: Denies dysuria Musculoskeletal: Musculoskeletal: Reports no additional musculoskeletal complaints Integumentary/Breasts: Skin/Breast: Denies rash Neurologic: Denies confusion Psychiatric: Psychiatric: Reports no additional psychiatric complaints [facility] Past Medical History Medical History (Updated 03/30/21 @ 11:20 by Cipriano Hodge MD) Acute bronchitis due to other specified organisms Acute CVA (cerebrovascular accident) Acute non-recurrent maxillary sinusitis Acute parotitis AK (actinic keratosis) Ataxia Bilateral foot pain BMI 33.0-33.9,adult BPH without urinary obstruction Chronic depression Claudication, intermittent Conjunctivitis Difficulty swallowing Fecal incontinence Hemiparesis affecting left side as late effect of cerebrovascular accident History of squamous cell carcinoma Hypogonadism male Intermittent claudication of both lower extremities due to atherosclerosis Mixed hyperlipidemia Multiple polyps of sigmoid colon Pain in left foot Prurigo nodularis Rheumatoid arthritis involving ankle with positive rheumatoid factor Rheumatoid arthritis involving multiple sites with positive rheumatoid factor Rheumatoid arthritis of unspecified si
--- NOTE | 2021-03-30 11:24 | PC.NURSE ---
Returned from GI Lab. Report received from VEIRTO Ryan.
[2021-03-30 11:53] LABS: Glucose Point of Care 115 (65-105)
--- NOTE | 2021-03-30 12:55 | PDONCCN ---
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 He presented with back pain between the shoulder blade started about 4 weeks ago along with shortness of breath and difficulty swallowing for couple of weeks duration. He was having dysphagia for liquids and as well as solid food. He lost almost 20 lb weight in last 3 months duration. CTA chest was done in the hospital that showed no evidence of pulmonary embolism but there was thickening of the cardia of the stomach suspicious for primary adenocarcinoma along with abdominal lymphadenopathy liver masses and lung nodule consistent with metastatic disease. Patient had EGD done on March 30 and that showed malignant appearance stenosis at the GE junction. Biopsies were taken and pathology is pending. Patient wants is to be discharged home today. He has been given my office information. Review of Systems - Review of Systems All systems reviewed & are unremarkable except as noted in HPI and bel - Neurologic Reports hearing normal, Reports weakness, Denies abnormal speech, Denies abnormal gait, Denies confusion [facility] Medical History: Medical History (Last Updated 03/30/21 @ 11:20 by Cipriano Hodge MD) Acute bronchitis due to other specified organisms Acute CVA (cerebrovascular accident) Acute non-recurrent maxillary sinusitis Acute parotitis AK (actinic keratosis) Ataxia Bilateral foot pain BMI 33.0-33.9,adult BPH without urinary obstruction Chronic depression Claudication, intermittent Conjunctivitis Difficulty swallowing Fecal incontinence Hemiparesis affecting left side as late effect of cerebrovascular accident History of squamous cell carcinoma Hypogonadism male Intermittent claudication of both lower extremities due to atherosclerosis Mixed hyperlipidemia Multiple polyps of sigmoid colon Pain in left foot Prurigo nodularis Rheumatoid arthritis involving ankle with positive rheumatoid factor Rheumatoid arthritis involving multiple sites with positive rheumatoid factor Rheumatoid arthritis of unspecified site with involvement of other organs and systems Skin cancer screening Skin neoplasm Squamous cell carcinoma of neck Type 2 diabetes mellitus with hyperglycemia, without long-term current use of insulin Family History: Family History (Last Reviewed 03/30/21 @ 10:02 by Rhys Richardson MD) Mother Family history of osteoporosis Family history of cardiac disorder, Onset Age: 89 Sibling Patient's brother is , Onset Age: 3 Family history of malignant neoplasm of kidney, Onset Age: 3 Father Malignant neoplasm of prostate, Onset Age: 92 - Social History Social History: Social History (Last Reviewed 03/30/21 @ 10:02 by Rhys Richardson MD) Gender Identity: Gender identity (if verbalized by the patient): Male Alcohol Use: Alcohol intake: never Substance Use: Substance use: never Others: Spiritual care concerns: No Smoking Status: Smoking status: Never smoker Meds Home Medications Medication Instructions Recorded Confirmed Type adalimumab 40 mg/0.8 mL 40 mg SUB-Q WEEKLY each 09/30/19 03/29/21 History subcutaneous syringe kit atorvastatin 40 mg tablet 40 mg PO EVERY OTHER DAY 09/30/19 03/29/21 History cholecalciferol (vitamin D3) 25 1,000 unit PO DAILY 10/08/19 03/29/21 History mcg (1,000 unit) capsule folic acid 1 mg tablet 2 mg PO DAILY tablet 10/08/19 03/29/21 History multivitamin,wz-nfpp-rzztlsmz 1 tablet PO DAILY 10/08/19 03/29/21 History omega-3 360
--- NOTE | 2021-03-30 16:17 | PM.DS ---
DS: Admitting Diagnosis Admitting Diagnosis Admitting Diagnosis: dysphagia, back pain DS: Discharge Diagnosis Discharge Diagnosis (1) Gastric mass: Code(s): K31.89 - Other diseases of stomach and duodenum Status: Acute Assessment and Plan: completed EGD and biopsies were done of gastric masses by GI physician most likely malignancy with evidence of mets prognosis is guarded oncologist discussed with patient and approved discharge today, they will continue treatment and workup outpatient Oncologist: patient need palliative chemotherapy. He will also need PET scan as an outpatient. Oncologist will see him in the office and will order the PET scan and further discussion about chemotherapy treatment will be done after the final pathology report is available. Patient will also need MediPort placement that can be done as an outpatient. (2) Metastatic disease: Code(s): C79.9 - Secondary malignant neoplasm of unspecified site Status: Acute Assessment and Plan: on immunosuppressive therapy for at least 25 years duration currently on Humira and methotrexate. dysphagia and weight loss already evident CTA chest showed no evidence of pulmonary embolism but there was thickening of the cardia of the stomach suspicious for primary adenocarcinoma along with abdominal lymphadenopathy liver masses and lung nodule consistent with metastatic disease. CTA showed lymph node, liver and lung involvement (lesions/mets). Biopsies were taken during EGD and pathology is pending. Appreciate Oncologist Consultation and GI consultation. (3) Hypercalcemia: Code(s): E83.52 - Hypercalcemia Status: Acute Assessment and Plan: Hypercalcemia with a level of 11 Yesterday today Calcium level is 10.1 and normal. 2019 level was normal as well as January of 2020 level was normal. Possibly was due to dehydration may follow-up with PCP and review future labs (4) BMI 33.0-33.9,adult: Code(s): Z68.33 - Body mass index [BMI] 33.0-33.9, adult Status: Acute Assessment and Plan: morbid obesity recent weight loss 20 lbs. with difficulty swallowing and new diagnosis of metastasis patient will likely continue to lose weight (5) Difficulty swallowing: Qualifiers: Dysphagia type: unspecified Qualified Code(s): R13.10 - Dysphagia, unspecified Code(s): R13.10 - Dysphagia, unspecified Status: Acute Assessment and Plan: probably from mass in cardia, advised patient to take a sip of liquid or water prior to a bite of food and follow the bite of food with a sip of liquid or water. He is to chew and macerated his food into very small pieces before swallowing GI spoke with the patient regarding his difficulty swallowing, he was advised to continue a soft full liquid diet for as long as he was able to. at that point the only other option is a PEG tube placement. but he is not to that point yet Following oncologist recommendations and GI recommendations if patient able to eat his evening hospital meal , then he may be discharged per GI recommendations. (6) Type 2 diabetes mellitus with hyperglycemia, without long-term current use of insulin: Code(s): E11.65 - Type 2 diabetes mellitus with hyperglycemia Status: Acute Assessment and Plan: glucose level were currently controlled today 115, 126, 141 no changes made to medications (7) Mixed hyperlipidemia: Code(s): E78.2 - Mixed hyperlipidemia Status: Acute Assessment and Plan: continue his home medications no concerns at this time no chest pain or shortness of breath vital signs are stable (8) Chronic depression: Code(s): F32.9 - Major depressive disorder, single episode, unspecified Status: Acute Assessment and Plan: appeared euthymic and controlled at this time patient is able to ask questions and participate in conversations, planning ahead
== END 2021-03-30 17:50 | disposition home or self-care (01) ==
LOC: ANHED 20:37 → ANH2MED 20:59
PROVIDERS: Internal Medicine Gastroenterology; Nurse Practitioner; Admitting Provider Internal Medicine; Emergency Provider General Practice; PCP Family Medicine; Visit Provider Hospitalist
PROC: 0DJ08ZZ Inspection of Upper Intestinal Tract, Via Natural or Artificial Opening Endoscopic (ICD-10-PCS; CPT 43235; principal; 2021-03-30 14:45)
DX: C15.5 Malignant neoplasm of lower third of esophagus (principal); K31.89 Other diseases of stomach and duodenum; R53.1 Weakness; R07.9 Chest pain, unspecified; R06.02 Shortness of breath; E11.65 Type 2 diabetes mellitus with hyperglycemia; E83.52 Hypercalcemia; E78.2 Mixed hyperlipidemia; F32.9 Major depressive disorder, single episode, unspecified; G47.33 Obstructive sleep apnea (adult) (pediatric); I10 Essential (primary) hypertension; M06.9 Rheumatoid arthritis, unspecified; R13.10 Dysphagia, unspecified; R16.0 Hepatomegaly, not elsewhere classified; R91.8 Other nonspecific abnormal finding of lung field; Z79.4 Long term (current) use of insulin; Z86.73 Personal history of transient ischemic attack (TIA), and cerebral infarction without residual deficits; Z87.891 Personal history of nicotine dependence
CPT/HCPCS: 43239; 36415; 71045; 71275; 74177; 80053; 81001; 82948; 83605; 83690; 83735; 83880; 84484; 85025; 85055; 85380; 85610; 85730; 86140; 87081; 88305; 88342; 93005; 96360; 96361; 96374; 96375; 96376; 99285; A9270; G0378; J2270; J2704; J7030; J7120; Q9967